=== PATIENT | male | born 1995 | race Caucasian/White ===

== ENCOUNTER 2020-04-02 13:06 | Emergency (ER) | payer OTHER ==
[~2020-04-02 13:06] MED LIST: KEFLEX CAP 500500 MG PO; LOTRIMIN CREAM15 GM TP
[2020-04-02 14:08] LABS: HEMOGLOBIN 14.8 gm/dl (14.0-17.5); RED BLOOD COUNT 4.84 M/UL (4.20-5.50); WHITE BLOOD COUNT 6.9 K/UL (4.5-11.0)
[2020-04-02 14:25] LABS: BUN/CREATININE RATIO 10 (0-10)
== END 2020-04-02 18:52 | disposition home or self-care (01) ==
LOC: ER1 13:06
PROVIDERS: Physician Assistant Medical
DX: T43.621A Poisoning by amphetamines, accidental (unintentional), initial encounter (principal); T40.1X1A Poisoning by heroin, accidental (unintentional), initial encounter; F19.10 Other psychoactive substance abuse, uncomplicated; S00.81XA Abrasion of other part of head, initial encounter; X58.XXXA Exposure to other specified factors, initial encounter
CPT/HCPCS: 70450; 71045; 80053; 80307; 81001; 82550; 82553; 83874; 84484; 85025; 93005; 96374; 99285; G0480; J2405